=== PATIENT | female | born 1955 | race Caucasian/White ===

== ENCOUNTER 2017-10-29 17:48 | Inpatient (IN) | payer MEDICAID ==
[~2017-10-29] VITALS: Ht 160 cm; Wt 67.2 kg
[2017-10-29 19:15] LABS: ALBUMIN 3.4 g/dL (3.4-5.0); ALKALINE PHOSPHATASE 79 U/L (46-116); ALT/SGPT 19 U/L (14-59); AST/SGOT 31 U/L (15-37); BILIRUBIN TOTAL 0.7 mg/dL (0.20-1.00); CARBON DIOXIDE 29.4 mmol/L (21-32); CHLORIDE SERUM 105 mmol/L (98-107); CREATININE SERUM 0.7 mg/dL (0.6-1.0); GFR1 > 60 mL/min; GLUCOSE SERUM 141 mg/dL (74-106); SODIUM SERUM 140 mmol/L (136-145); TOTAL PROTEIN, SERUM 7.5 g/dL (6.4-8.2)
[2017-10-29 19:17] LABS: BASOPHIL % 1.3 % (0-2); PLATELET COUNT 225 x10^3mcL (130-400); RED CELL DISTRIBUTION WIDTH 13.9 % (11.5-14.5)
[2017-10-29 19:19] LABS: POTASSIUM SERUM 5.7 mmol/L (3.5-5.1)
[2017-10-29 21:22] LABS: MAGNESIUM 2.1 mg/dL (1.8-2.4); PHOSPHOROUS 2.9 mg/dL (2.5-4.9)
[2017-10-29 21:24] LABS: CHOLESTEROL/HDL RATIO 3.4
[2017-10-29 21:30] LABS: FREE T4 1.17 ng/dL (0.76-1.46); FREE THYROXINE INDEX 3.2 ug/dL (1.4-4.5); T4(THYROXINE) 9.8 ug/dL (4.7-13.3)
[2017-10-29 21:31] LABS: T3 TOTAL 0.97 ng/mL
[2017-10-29 21:52] VITALS: BP 142/62
[2017-10-30 00:35] VITALS: BP 134/54
[2017-10-30 04:49] LABS: microscopic required? YES; urine erythrocyte TRACE (NEGATIVE)
[2017-10-30 05:17] LABS: AMPHETAMINE QUAL UR NONE DETECTED (NEG <=1000)
[2017-10-30 05:44] VITALS: BP 114/53
[2017-10-30 06:27] LABS: CARBON DIOXIDE 28.6 mmol/L (21-32); CHLORIDE SERUM 109 mmol/L (98-107); CREATININE SERUM 0.6 mg/dL (0.6-1.0); GFR1 > 60 mL/min; GLUCOSE SERUM 105 mg/dL (74-106); POTASSIUM SERUM 3.8 mmol/L (3.5-5.1); SODIUM SERUM 143 mmol/L (136-145)
[2017-10-30 06:57] LABS: BASOPHIL % 0.5 % (0-2); PLATELET COUNT 198 x10^3mcL (130-400); RED CELL DISTRIBUTION WIDTH 14.2 % (11.5-14.5)
[2017-10-30 09:17] VITALS: BP 116/45
[2017-10-30 14:01] VITALS: BP 121/59
[2017-10-30 17:26] VITALS: BP 110/62; BP 130/61
[2017-10-30 21:31] VITALS: BP 128/55
[2017-10-31 06:09] VITALS: BP 119/49
[2017-10-31 06:25] LABS: CALCIUM 9.7 mg/dL (8.5-10.1); CARBON DIOXIDE 31.3 mmol/L (21-32); CHLORIDE SERUM 109 mmol/L (98-107); CREATININE SERUM 0.7 mg/dL (0.6-1.0); GFR1 > 60 mL/min; GLUCOSE SERUM 101 mg/dL (74-106); POTASSIUM SERUM 4.2 mmol/L (3.5-5.1); SODIUM SERUM 143 mmol/L (136-145)
[2017-10-31 06:35] LABS: BASOPHIL % 0.4 % (0-2); PLATELET COUNT 195 x10^3mcL (130-400); RED CELL DISTRIBUTION WIDTH 13.8 % (11.5-14.5)
[2017-10-31] MEDS ORDERED: ZES20 PO (09:39)
[2017-10-31] MEDS ORDERED: PRI20 PO (09:39)
[2017-10-31] MEDS ORDERED: TYL325 PO (09:39)
[2017-10-31 11:23] VITALS: BP 138/62
[2017-10-31 11:51] VITALS: BP 138/62
[2017-10-31 13:14] VITALS: BP 136/55
[2017-10-31] MEDS ORDERED: GOOD NEIGHBOR650 M2 PO (14:34)
[2017-10-31] MEDS ORDERED: GOOD SENSE OMEP20 MG PO (14:34)
[2017-10-31] MEDS ORDERED: ZESTRIL20 MG PO (14:34)
== END 2017-10-31 14:44 | disposition home or self-care (01) | DRG 243 ==
LOC: ED 17:48 → DU 20:27
PROVIDERS: Emergency Medicine; ADMIT Family Medicine
DX: K21.9 Gastro-esophageal reflux disease without esophagitis (principal); E87.5 Hyperkalemia; I10 Essential (primary) hypertension; E78.5 Hyperlipidemia, unspecified; Z68.24 Body mass index [BMI] 24.0-24.9, adult
CPT/HCPCS: 83880; 84439; 94150; J3010; J7030; Q0092

== ENCOUNTER 2018-11-07 10:29 | Emergency (ER) | payer MEDICAID ==
[~2018-11-07] VITALS: Ht 152.4 cm; Wt 70.8 kg
[~2018-11-07 10:29] MED LIST: GOOD NEIGHBOR650 M2 PO; GOOD SENSE OMEP20 MG PO; PRI20 PO; TYL325 PO; ZES20 PO; ZESTRIL20 MG PO
[2018-11-07 10:32] VITALS: Ht 152.4 cm; Wt 70.8 kg
[2018-11-07 11:28] LABS: BASOPHIL % 0.7 % (0-2); PLATELET COUNT 215 x10^3mcL (130-400); RED CELL DISTRIBUTION WIDTH 13.8 % (11.5-14.5)
[2018-11-07 11:39] LABS: UA SPECIFIC GRAVITY 1.015 (1.005-1.035); microscopic required? YES; urine erythrocyte TRACE (NEGATIVE)
[2018-11-07 12:34] LABS: CARBON DIOXIDE 29.7 mmol/L (21-32); CHLORIDE SERUM 106 mmol/L (98-107); CREATININE SERUM 0.6 mg/dL (0.6-1.0); GFR1 > 60 mL/min; GLUCOSE SERUM 101 mg/dL (74-106); SODIUM SERUM 140 mmol/L (136-145)
[2018-11-07 12:38] LABS: ALBUMIN 3.7 g/dL (3.4-5.0); ALKALINE PHOSPHATASE 85 U/L (46-116); ALT/SGPT 21 U/L (14-59); AMYLASE 81 U/L (25-115); AST/SGOT 17 U/L (15-37); BILIRUBIN TOTAL 0.69 mg/dL (0.20-1.00); LIPASE 147 IU/L (73-393); TOTAL PROTEIN, SERUM 7.4 g/dL (6.4-8.2)
[2018-11-07 13:53] VITALS: BP 145/73
== END 2018-11-07 13:53 | disposition home or self-care (01) ==
LOC: ED 10:29
PROVIDERS: Emergency Medicine
DX: N13.2 Hydronephrosis with renal and ureteral calculous obstruction (principal); I10 Essential (primary) hypertension; Z98.890 Other specified postprocedural states
CPT/HCPCS: 76770; J1885; J7030; Q0092